=== PATIENT | male | born 1940 | race Caucasian/White ===

== ENCOUNTER 2020-09-30 19:36 | Emergency (ER) | payer MEDICARE, SELFPAY ==
[2020-09-30 19:43] VITALS: BP 157/76; PULSE 80; RESP 16; TEMP 36.6; O2SAT 95; BMI 28.3
--- NOTE | 2020-09-30 20:43 | PC.NURSE ---
PT ADVISED THIS RN DOES NOT WANT TO WAIT ANY LONGER FOR THE DR, WILL FOLLOW UP NEEDED. PT AMBULATED OUT OF ED WITH EVEN STEADY GAIT USING WALKER.
== END 2020-09-30 20:45 | disposition left against medical advice (07) ==
PROVIDERS: Emergency Provider Emergency Medicine
DX: S39.92XA Unspecified injury of lower back, initial encounter (principal); W18.31XA Fall on same level due to stepping on an object, initial encounter; Y93.89 Activity, other specified; Y92.59 Other trade areas as the place of occurrence of the external cause; Y99.9 Unspecified external cause status; Z79.899 Other long term (current) drug therapy
CPT/HCPCS: 99281; 99283; 99284; 99285

== ENCOUNTER 2020-10-01 12:25 | Emergency (ER) | payer MEDICARE, SELFPAY ==
--- NOTE | ~2020-10-01 | CT_ITS ---
EXAMINATION: CT HEAD WITHOUT CONTRAST CT CERVICAL SPINE WITHOUT CONTRAST CT CHEST, ABDOMEN AND PELVIS WITH CONTRAST CLINICAL INFORMATION: Fall COMPARISON: None. TECHNIQUE: Multidetector CT imaging of the head and cervical spine was performed without the use of intravenous contrast. Multiplanar reformats are reviewed. Multidetector volumetric CT imaging of the chest, abdomen and pelvis was obtained after the administration of 85 mL of intravenous Omnipaque 350 without immediate adverse reactions. Coronal and sagittal reformats were reviewed. This CT examination was performed using dose optimization techniques as appropriate, variously including the following: *Automated exposure control *Adjustment of mA and/or kV according to patient size (this includes techniques or standardized protocols for targeted exams where dose is matched to indication/reason for exam; i.e. extremities or head) *Use of iterative reconstruction technique DLP: 1502 mGy-cm. FINDINGS: HEAD There is no evidence of acute intracranial hemorrhage or territorial infarction. No abnormal mass effect or midline shift is seen. Grimaldo to white matter differentiation is well preserved. No extra-axial fluid collections are identified. The ventricles are normal in size. Patchy subcortical and periventricular white matter low-attenuation changes related to chronic small vessel ischemic disease. The osseous structures and soft tissues are normal. The mastoid air cells and visualized portions of the paranasal sinuses are well-aerated. CERVICAL SPINE: Atlantooccipital alignment is maintained. The vertebral bodies and posterior elements align normally. No acute fracture or subluxation. Vertebral body heights and intervertebral disc spaces are preserved. Endplate osteophytes present throughout the cervical spine with accompanying loss of disc space height ankylosis of the vertebral bodies and C4-C5. Mild facet arthropathy throughout cervical spine. Ankylosis of the posterior articular pillars bilaterally at C4-C5. Newton bilateral carotid bulb calcifications. CHEST LUNGS/PLEURA: Severe emphysema. Mild diffuse bronchial wall thickening, without bronchiectasis. There is a 2.2 x 1.3 x 1.7 cm pleural nodule along the left posterior hemithorax, with attenuation of approximately 0-5 Hounsfield units. There is a 1.5 cm round coarsely calcified nodule within the right upper lobe. There is a 9 x 6 mm nodule within the right upper lobe There are a few scattered calcified granulomata and scattered pulmonary nodules measuring 4 mm or less. Change sutures present within the left upper lobe. No pleural effusion. MEDIASTINUM/JULIAN: Normal heart size. No pericardial effusion. Aortic valve replacement. Triple vessel coronary calcifications. No supraclavicular, mediastinal or hilar adenopathy by size criteria. CHEST WALL/AXILLA: Unremarkable. ABDOMEN/PELVIS HEPATOBILIARY: Liver normal in size, contour and morphology. No suspicious lesions. No intra or extrahepatic biliary dilation. Cholelithiasis. PANCREAS: Unremarkable. SPLEEN: Unremarkable. ADRENAL GLANDS: Unremarkable. KIDNEYS, URETERS AND BLADDER: Kidneys normal in size, axis and morphology demonstrating symmetric enhancement. No hydronephrosis or urinary calculi. Ureters normal in course and caliber. Bladder is distended diffusely thick-walled/heavily trabeculated reflective of detrussor hypertrophy likely related to chronic bladder obstruction. GASTROINTESTINAL TRACT: No bowel related abnormalities. PELVIC VISCERA: Prostate is enlarged. Seminal vesicles grossly unremarkable. LYMPH NODES: No lymphadenopathy. PERITONEUM/BODY WALL: Unremarkable. VASCULAR STRUCTURES: Aorta is atherosclerotic. Patent venous structures. OSSEOUS STRUCTURES No acute or suspicious osseous abnormalities. Endplate osteophytes present throughout the lumbar spine with near complete loss of disc space height from L2 through S1, endplate osteophytes and subchondral sclerosis. Bulky hypertrophic facet arthropathy throughout the lumbar lumbar spine. Pagetoid right femur. Mild bilateral hip joint space narrowing. CT/CT cervical spine wo con IMPRESSION: * No acute intracranial pathology. * No cervical spine fracture or malalignment. * No evidence of acute traumatic injury within the chest, abdomen or pelvis. * Severe emphysema. * Nonspecific 2.2 cm pleural nodule along the left posterior hemithorax measuring fluid density centrally. Appearance is nonspecific and could represent a chronic pleuroparenchymal scar or neoplasm (with necrosis). Recommend follow-up CT chest in 3 months. * There is a also a 7 mm mean diameter solid nodule within the right upper lobe, also nonspecific. Attention on follow-up. * Coarsely calcified 1.5 cm nodule within the right upper lobe most compatible with a hamartoma or calcified granuloma. * Cholelithiasis. * Prostatomegaly and distended heavily trabeculated bladder likely related to chronic bladder outlet obstruction. * No acute fractures or other suspicious osseous abnormalities. Pagetoid right femur.
--- NOTE | ~2020-10-01 | XR_ITS ---
EXAMINATION: XR LUMBOSACRAL SPINE CLINICAL INFORMATION: Fall, trauma, pain COMPARISON: Chest and RIBS 10/01/2020. TECHNIQUE: Three views of the lumbosacral spine. FINDINGS: There are multilevel degenerative changes with marked lumbar disc narrowing L2-L3, L3-L4, L4-L5, and L5-S1. There is associated endplate sclerosis, variable vacuum disc, and vertebral spurring and partially bridging osteophytes. There is no lumbar vertebral compression, destructive process, or visible paraspinal soft tissue swelling. No significant spondylolisthesis. There is borderline retrolisthesis L3-L4 likely related to the degenerative changes in the disc and facet. There is mild dextrocurvature. Multilevel facet degeneration is present L2-S1. There are mild degenerative changes lower SI joints. There are also degenerative changes involving the lower thoracic spine of lesser severity. There are postsurgical changes with aortic valve replacement and chain tawanda right lower quadrant abdomen and deep central pelvis. XR/XR lumbar spine 2-3V IMPRESSION: 1. Multilevel degenerative disc and degenerative facet changes greatest at L3-S1. 2. Borderline retrolisthesis L3-L4. No vertebral compression or destructive process.
--- NOTE | ~2020-10-01 | XR_ITS ---
EXAMINATION: XR RIBS, RIGHT CLINICAL INFORMATION: Fall, trauma, pain COMPARISON: Lumbar radiographs 10/01/2020 TECHNIQUE: Frontal view the chest is performed along with 5 views of the right ribs for a total of 6 views. FINDINGS: There are mildly displaced fractures distal end to lower right anterior lateral ribs, likely 9th and 10th. There is no bony destructive process. The remainder of the right ribs appear intact with no other fractures, destructive process, or periostitis. There is no pneumothorax or pleural reaction. A 1.5 cm mass overlies periphery right midlung field. There is been prior median sternotomy with aortic valve replacement. The heart is normal in size. The hilar and mediastinal contours are normal. Multilevel degenerative changes are present thoracic spine. XR/XR ribs RT min 3V w CXR1V IMPRESSION: 1. Mass periphery right midlung zone 1.5 cm. (No prior chest radiographs for comparison. Patient has prior sternotomy and aortic valve replacement which may allow for outside comparison report). 2. Fractures right lower anterior ribs, likely 9th and 10th. No destructive process. 3. No pneumothorax, infiltrate, or effusion.
[2020-10-01 13:16] VITALS: BP 133/71; PULSE 54; RESP 16; TEMP 36.4; O2SAT 96; BMI 26.6
--- NOTE | 2020-10-01 14:12 | ED_ITS ---
HPI - Fall General Chief Complaint: Fall Stated Complaint: rt rib pain Time Seen by Provider: 10/01/20 13:30 Source: patient Mode of arrival: ambulatory Limitations: no limitations History of Present Illness HPI Narrative: Patient presents to the ED for right-sided lower rib pain and lower back pain after falling at [facility] yesterday. Patient states he was walking store and his sneaker got caught on an item on the floor and he fell onto his right chest. Patient states she was present when this occurred and c onfirm story that patient tripped over an object and fell. Patient denies hitting head or loss of consciousness. Patient denies any dizziness, nausea, vomiting, headache, abdominal pain, or vomiting blood since before falling. Related Data Previous Rx's Medication Instructions Recorded ibuprofen 400 mg PO Q6H PRN #28 tab 10/01/20 oxycodone-acetaminophen [Percocet] 1 tab PO TID PRN #9 tab 10/01/20 Allergies Allergy/AdvReac Type Severity Reaction Status Date / Time No Known Allergies Allergy Verified 10/01/20 13:14 Review of Systems Review of Systems: Yes all other systems are reviewed and are negative Constitutional: Constitutional: Reports as per HPI and Reports no additional constitutional complaints Eyes: Eyes: Reports as per HPI and Reports no additional eye complaints ENT: Reports system reviewed and no additional complaints, except as documented and Reports as per HPI Cardiovascular: Cardiovascular: Reports as per HPI, Reports no additional cardiovascular complaints and Reports chest pain (Right lower rib pain) Respiratory: Respiratory: Reports as per HPI and Reports no additional respiratory complaints Gastrointestinal: Gastrointestinal: Reports as per HPI and Reports no additional gastrointestinal complaints Genitourinary: Genitourinary: Reports no additional male genitourinary complaints and Reports as per HPI Musculoskeletal: Musculoskeletal: Reports no additional musculoskeletal complaints, Reports as per HPI and Reports back pain Neurologic: Reports system reviewed and no additional complaints, except as documented and Reports as per HPI Psychiatric: Psychiatric: Reports no additional psychiatric complaints and Reports as per HPI COUNT INCLUDES THE [facility] Past Medical History Medical History (Updated 10/01/20 @ 19:46 by DES Luque) HLD (hyperlipidemia) HTN (hypertension) Social History Social History Alcohol intake: never Smoking Status: Never smoker Smoked in Last 30 Days: No Use of substances other than those prescribed or required for medical reasons: No Advance Directives: No Advance Directives Information Provided: No Physical Exam Vital Signs: Vital Signs: Last Vital Signs Temp 97.6 F 10/01/20 17:07 Pulse 70 10/01/20 17:07 Resp 14 10/01/20 17:07 BP 137/71 10/01/20 17:07 Pulse Ox 97 10/01/20 17:07 Body Mass Index 26.6 Const: General: cooperative, healthy appearing, comfortable, no acute distress, well developed, alert, awake and Physically active Orientation/consciousness: patient oriented x3 HENMT: Head: Yes normal to inspection, Yes No palpable skull fracture present, Yes normocephalic, Yes atraumatic, No abrasion, No Acrocyanosis present, No Singleton's sign, No contusion, No cranial bruits, No hematoma, No laceration, No occipital foramen tenderness, No palpable skull fracture, No raccoon eyes, No scalp lesion, No scalp tenderness, No Temporal artery tenderness present and No periorbital ecchymosis Eyes: General: appearance normal, both eyes and all related structures Neck: Neck: Yes normal visual inspection, Yes full ROM, Yes no lymphadenopathy, Yes no meningeal signs, Yes trachea midline, Yes supple and No tender Chest: Chest palpation & inspection: normal inspection of the chest and abnormal inspection of the chest (Positive for right lower posterior rib tenderness on palpation) Resp: Effort & Inspection: normal respiratory effort and able to speak in complete sentences Auscultation: clear to auscultation bilaterally Cardio: Jugular venous distension: no JVD Heart sounds: S1 normal heart sound present and S2 normal heart sound present GI: Inspection: Yes normal to inspection and No abdominal wall ecchymosis Palpation (GI): Soft to palpation, not firm, nontender, no guarding and not rigid : General: No CVA tenderness and Yes no CVA tenderness Back/Spine/Pelvis: Back: no CVA tenderness, No CVA tenderness and back te nderness (Right lower lumbar muscular tenderness) Skin: General skin exam: no rashes or lesions noted and elasticity normal Neuro: General: patient oriented x3, no meningeal signs and CN's II-XI intact bilaterally Cranial nerves: Yes CN's II-XII intact bilaterally Extrem: General: Yes normal to inspection and Yes full ROM Psych: Appearance: grossly normal, well kempt and not disheveled Course Course Course Narrative: Patient since the chest and lower back pain x-ray Reevaluation(s) Reevaluation #1: Rib x-ray shows fracture of the 9th and 10th ribs. Fast exam at bedside negative for any free fluid/blood. Once again patient was [place] with his if he hit his head when he fell and lost consciousness patient denies falling and hitting head and said the same thing. Patient and both states patient is not on any blood thinners. Patient is not on aspirin as per both and . Patient discharged with pain medication Time: 14:33 Reevaluation #2: Spoke with Dr. Kennedy ED attending who states due to age and patient having 2 rib fractures patient is to have CT scan to make sure there is any more rib fractures and any injury to the abdomen. Labs will be drawn and patient will be sent for CT of chest abdomen. Patient also have head CT and C- spine. No indication for EKG and troponin. History physical exam indicates mechanical fall. Patient persisted he tripped and fell and his was present in the room confirmed story. Patient denies ever having chest pain, dizziness, nausea, vomiting, chest pain, headache, headache before falling. Reevaluation #3: Images were done. Head CT and C-spine came back normal. Abdominal CT negative for any laceration organ damage. Contacted Dr. Cem mcginnis to classify chest CT reading any states patient does have a 9th and 10 rib fracture. Patient made aware of lung mass. Patient will be given incentive spirometer at discharge. MDM - Fall MDM Narrative Medical decision making narrative: Rib fractures Lab Data Result diagrams: 10/01/20 15:24 10/01/20 18:49 Labs: Lab Results 10/01/20 10/01/20 10/01/20 Range/Units 15:24 15:24 15:24 WBC 8.8 (4.8-10.8) X10*3/uL RBC 4.38 L (4.60-5.80) X10*6/uL Hgb 13.5 L (14.0-18.0) g/dl Hct 42.8 (42-52) % MCV 97.7 (80-98) fL MCH 30.8 (27.0-33.0) pg MCHC 31.5 (31.0-36.0) g/dl RDW 14.5 (11.0-16.0) % Plt Count 275 (160-400) X10*3/uL MPV 10.6 (9.4-12.4) fL Immature Gran % (Auto) 0.2 (0.0-0.4) % Neut % (Auto) 78.8 H (45-73) % Lymph % (Auto) 9.4 L (20-40) % [place] % (Auto) 10.1 (2-11) % Eos % (Auto) 0.8 (0-4) % Baso % (Auto) 0.7 (0-2) % Lymph # (Auto) 0.8 L (1.2-4.9) X10*3/uL [place] # (Auto) 0.9 (0.1-1.2) X10*3/uL Eos # (Auto) 0.1 (0.0-0.4) X10*3/uL Baso # (Auto) 0.1 (0.0-0.2) X10*3/uL Abs Immat Gran (auto) 0.02 (0.00-0.03) X10*3/uL Absolute Neuts (auto) 7.0 (2.0-8.3) X10*3/uL Absolute Nucleated RBC 0.000 (0.0-0.012) X10*3/uL Nucleated RBC % (auto) 0.0 (0.0-0.2) /100WBC PT 11.8 (10.8-13.0) SEC INR 1.0 (0.9-1.1) APTT 36.2 (24.1-38.0) SEC Sodium 137 (135-145) mmol/L Potassium 4.6 (3.3-5.1) mmol/L Chloride 103 (96-108) mmol/L Carbon Dioxide 25 (22-29) mmol/L Anion Gap 14 (12-20) BUN 30 H (9-16) mg/dL Creatinine 1.53 H (0.5-1.4) mg/dL Estim Creat Clear Calc 36.0 Estimated GFR 44 Random Glucose 111 (60-115) mg/dL Calcium 9.2 (8.4-10.2) mg/dL Total Bilirubin 0.9 (0.0-1.0) mg/dL AST 22 (5-37) U/L ALT 19 (0-40) U/L Alkaline Phosphatase 65 (39-117) U/L Total Protein 7.1 (6.5-8.0) g/dL Albumin 4.3 (3.5-5.0) g/dL / Range/Units 18:49 WBC (4.8-10.8) X10*3/uL RBC (4.60-5.80) X10*6/uL Hgb (14.0-18.0) g/dl Hct (42-52) % MCV (80-98) fL MCH (27.0-33.0) pg MCHC (31.0-36.0) g/dl RDW (11.0-16.0) % Plt Count (160-400) X10*3/uL MPV (9.4-12.4) fL Immature Gran % (Auto) (0.0-0.4) % Neut % (Auto) (45-73) % Lymph % (Auto) (20-40) % [place] % (Auto) (2-11) % Eos % (Auto) (0-4) % Baso % (Auto) (0-2) % Lymph # (Auto) (1.2-4.9) X10*3/uL [place] # (Auto) (0.1-1.2) X10*3/uL Eos # (Auto) (0.0-0.4) X10*3/uL Baso # (Auto) (0.0-0.2) X10*3/uL Abs Immat Gran (auto) (0.00-0.03) X10*3/uL Absolute Neuts (auto) (2.0-8.3) X10*3/uL Absolute Nucleated RBC (0.0-0.012) X10*3/uL Nucleated RBC % (auto) (0.0-0.2) /100WBC PT (10.8-13.0) SEC INR (0.9-1.1) APTT (24.1-38.0) SEC Sodium 136 (135-145) mmol/L Potassium 4.0 (3.3-5.1) mmol/L Chloride 106 (96-108) mmol/L Carbon Dioxide 22 (22-29) mmol/L Anion Gap 12 (12-20) BUN 25 H (9-16) mg/dL Creatinine 1.28 (0.5-1.4) mg/dL Estim Creat Clear Calc 43.0 Estimated GFR 54 Random Glucose 119 H (60-115) mg/dL Calcium 7.8 L D (8.4-10.2) mg/dL Total Bilirubin 0.9 (0.0-1.0) mg/dL AST 18 (5-37) U/L ALT 15 (0-40) U/L Alkaline Phosphatase 57 (39-117) U/L Total Protein 6.0 L (6.5-8.0) g/dL Albumin 3.7 (3.5-5.0) g/dL Discharge Plan Discharge Clinical Impression: Fracture, ribs Patient Disposition: Home, Self-Care Instructions: Rib Fracture (ED) Additional Instructions: Return to the ED immediately for any chest pain, chest pain on inspiration, coughing up blood, rectal bleeding, headache, dizziness, fever, chills, shortness of breath, or any other concerning symptoms. Please use incentive spirometer every hour to prevent lung collapse. Prescriptions: New oxycodone-acetaminophen [Percocet] 5-325 mg tablet 1 tab PO TID PRN (Reason: pain) Qty: 9 RF: 0 ibuprofen 400 mg tablet 400 mg PO Q6H PRN (Reason: pain) Qty: 28 RF: 0 Referrals: Tangela See DO [Primary Care Provider] - 2 days (Right 9th and 10th rib fractures. Also lung mass) Interventions: ED Discharge Assessment Last Done: 10/01/20 20:04 Discharge Date/Time: 10/01/20 20:07 Print Language: Arabic
[2020-10-01] MEDS: 0.9 % Sodium Chloride 1,000 ML 999 ML IV ×2 (15:33→17:02)
[2020-10-01 15:34] LABS: MANUAL DIFF FLAG NO
[2020-10-01 15:43] LABS: Prothrombin Time 11.8 SEC (10.8-13.0)
[2020-10-01 15:45] LABS: Partial Thromboplastin Time 36.2 SEC (24.1-38.0)
[2020-10-01 15:57] LABS: Basophils Absolute Auto 0.1 X10*3/uL (0.0-0.2); Basophils Percent Auto 0.7 % (0-2); Eosinophils Absolute Auto 0.1 X10*3/uL (0.0-0.4); Eosinophils Percent Auto 0.8 % (0-4); Hematocrit 42.8 % (42-52); Hemoglobin 13.5 g/dl (14.0-18.0); Imm Gran Abs Auto 0.02 X10*3/uL (0.00-0.03); Imm Gran Pct Auto 0.2 % (0.0-0.4); Lymphocytes Absolute Auto 0.8 X10*3/uL (1.2-4.9); Lymphocytes Percent Auto 9.4 % (20-40); Mean Corpuscular HGB Conc 31.5 g/dl (31.0-36.0); Mean Corpuscular Hemoglobin 30.8 pg (27.0-33.0); Mean Corpuscular Volume 97.7 fL (80-98); Mean Platelet Volume 10.6 fL (9.4-12.4); Monocytes Absolute Auto 0.9 X10*3/uL (0.1-1.2); Monocytes Percent Auto 10.1 % (2-11); Neutrophils Percent Auto 78.8 % (45-73); Platelet Count 275 X10*3/uL (160-400); Red Blood Count 4.38 X10*6/uL (4.60-5.80); Red Cell Distribution Width 14.5 % (11.0-16.0); White Blood Count 8.8 X10*3/uL (4.8-10.8)
[2020-10-01 16:06] LABS: Alanine Aminotransferase 19 U/L (0-40); Albumin Level 4.3 g/dL (3.5-5.0); Alkaline Phosphatase 65 U/L (39-117); Anion Gap 14 (12-20); Aspartate Amino Transferase 22 U/L (5-37); Bilirubin Total 0.9 mg/dL (0.0-1.0); Blood Urea Nitrogen 30 mg/dL (9-16); Calcium 9.2 mg/dL (8.4-10.2); Carbon Dioxide 25 mmol/L (22-29); Chloride 103 mmol/L (96-108); Estimated Glomerular Filt Rate 44; Glucose Random 111 mg/dL (60-115); Potassium 4.6 mmol/L (3.3-5.1); Sodium 137 mmol/L (135-145); Total Protein 7.1 g/dL (6.5-8.0)
--- NOTE | 2020-10-01 16:37 | PC.NURSE ---
iv fluids infused w/o apparent incident
--- NOTE | 2020-10-01 16:38 | PC.NURSE ---
DES CANO REQUESTS 1L NS TO BE INFUSED AFTER CT SCAN
--- NOTE | 2020-10-01 17:03 | PC.NURSE ---
2nd l of ns infusing at present time w/o apparent incident
[2020-10-01 17:07] VITALS: BP 137/71; PULSE 70; RESP 14; TEMP 36.4; O2SAT 97
[2020-10-01] MEDS: 0.9 % Sodium Chloride 500 ML IV (17:59)
[2020-10-01 19:35] LABS: Alanine Aminotransferase 15 U/L (0-40); Albumin Level 3.7 g/dL (3.5-5.0); Alkaline Phosphatase 57 U/L (39-117); Anion Gap 12 (12-20); Aspartate Amino Transferase 18 U/L (5-37); Bilirubin Total 0.9 mg/dL (0.0-1.0); Blood Urea Nitrogen 25 mg/dL (9-16); Calcium 7.8 mg/dL (8.4-10.2); Carbon Dioxide 22 mmol/L (22-29); Chloride 106 mmol/L (96-108); Estimated Glomerular Filt Rate 54; Glucose Random 119 mg/dL (60-115); Sodium 136 mmol/L (135-145)
== END 2020-10-01 20:07 | disposition home or self-care (01) ==
PROVIDERS: Physician Assistant; Emergency Provider Emergency Medicine Emergency Medical Services; PCP Internal Medicine
DX: S22.43XA Multiple fractures of ribs, bilateral, initial encounter for closed fracture (principal); R07.81 Pleurodynia; W01.0XXA Fall on same level from slipping, tripping and stumbling without subsequent striking against object, initial encounter; Y93.01 Activity, walking, marching and hiking; Y92.512 Supermarket, store or market as the place of occurrence of the external cause; Y99.8 Other external cause status; Z79.899 Other long term (current) drug therapy
CPT/HCPCS: 36415; 70450; 71101; 71260; 72100; 72125; 74177; 80053; 85025; 85610; 85730; 96360; 96361; 99284; Q9967